=== PATIENT | male | born 1935 | race Caucasian/White ===

== ENCOUNTER 2021-07-04 09:20 | Day surgery (SDC) | payer OTHER ==
[2021-06-29 13:05] VITALS: BMI 25.8
[2021-07-04] MEDS ORDERED: BSS (NA/CA/MG/K) BALANCED SALT SOLUTION OPHTH SOLN 15 ML BOTTLE ONE (09:51)
[2021-07-04] MEDS ORDERED: CARBACHOL 0.01% INTRA-OCULAR 1.5 ML VIAL ONE (09:51)
[2021-07-04] MEDS: PHENYLEPHRINE 2.5% OPHTH SOLN 15 ML BOTTLE ONE ×3 (10:15→10:25)
[2021-07-04] MEDS: CYCLOPENTOLATE 2% OPHTH SOLN 2 ML BOTTLE ONE ×3 (10:15→10:25)
[2021-07-04] MEDS: TROPICAMIDE 1% OPHTH SOLN 15 ML BOTTLE ONE ×3 (10:15→10:25)
[2021-07-04] MEDS: CIPROFLOXACIN 0.3% EYE DROPS 5 ML BOTTLE ONE ×3 (10:15→10:25)
[2021-07-04 10:18] VITALS: TEMP 98.2
[2021-07-04] MEDS ORDERED: MIDAZOLAM HCL 2 MG/2 ML SINGLE DOSE VIAL ONE (12:01)
[2021-07-04] MEDS ORDERED: ONDANSETRON 4 MG/2 ML VIAL IVPUSH PRN (12:12)
[2021-07-04] MEDS ORDERED: ACETAMINOPHEN 325 MG TABLET (FP) PO PRN (12:12)
[2021-07-04] MEDS ORDERED: LACTATED RINGERS SOLUTION 1,000 ML IV SCH (12:15)
[2021-07-04 13:31] VITALS: BP 109/61; PULSE 66
== END 2021-07-04 13:15 | disposition home or self-care (01) ==
LOC: FASU 09:20
PROVIDERS: ATTEND Ophthalmology
PROC: 08RK3JZ Replacement of Left Lens with Synthetic Substitute, Percutaneous Approach (ICD-10-PCS; principal; 2021-07-04 12:07)
DX: H26.8 Other specified cataract (principal)
CPT/HCPCS: 66984; V2632

== ENCOUNTER 2021-09-05 07:11 | Day surgery (SDC) | payer OTHER ==
[2021-08-27 16:07] VITALS: BMI 25.8
[2021-09-05] MEDS ORDERED: EPINEPHrine/PF 1 MG/1 ML (1:1,000) AMPULE ONE (07:35)
[2021-09-05] MEDS: CIPROFLOXACIN 0.3% EYE DROPS 5 ML BOTTLE ONE ×3 (07:35→07:45)
[2021-09-05] MEDS ORDERED: LIDOCAINE HCL/PF 1% SDV 5ML VIAL ONE (07:35)
[2021-09-05] MEDS: PHENYLEPHRINE 2.5% OPHTH SOLN 15 ML BOTTLE ONE ×3 (07:35→07:45)
[2021-09-05] MEDS ORDERED: TETRACAINE 0.5% OPHTH SOLN 2 ML BOTTLE ONE (07:35)
[2021-09-05] MEDS ORDERED: BSS (NA/CA/MG/K) BALANCED SALT SOLUTION OPHTH SOLN 15 ML BOTTLE ONE (07:35)
[2021-09-05] MEDS: TROPICAMIDE 1% OPHTH SOLN 15 ML BOTTLE ONE ×3 (07:35→07:45)
[2021-09-05] MEDS: CYCLOPENTOLATE 2% OPHTH SOLN 2 ML BOTTLE ONE ×3 (07:35→07:45)
[2021-09-05] MEDS ORDERED: CARBACHOL 0.01% INTRA-OCULAR 1.5 ML VIAL ONE (07:36)
[2021-09-05] MEDS ORDERED: NEO/POLYMYX B SULF/DEXAMETH OPHTHALMIC 5ML BOTTLE ONE (07:36)
[2021-09-05] MEDS ORDERED: MIDAZOLAM HCL 2 MG/2 ML SINGLE DOSE VIAL ONE (08:38)
[2021-09-05 09:16] VITALS: PULSE 60; TEMP 97.1
[2021-09-05 09:31] VITALS: BP 122/51
== END 2021-09-05 10:15 | disposition home or self-care (01) ==
LOC: FASU 07:11
PROVIDERS: ATTEND Ophthalmology
PROC: 08RJ3JZ Replacement of Right Lens with Synthetic Substitute, Percutaneous Approach (ICD-10-PCS; principal; 2021-09-05 08:46)
DX: H26.8 Other specified cataract (principal)
CPT/HCPCS: 66984; V2632